=== PATIENT | female | born 1985 | race Hispanic/Latino ===

== ENCOUNTER 2017-07-25 20:48 | Observation (INO) | payer MEDICAID, OTHER ==
[~2017-07-25] VITALS: Ht 165.1 cm; Wt 72.1 kg
[2017-07-25 21:18] LABS: APPEARANCE,URINE Clear (CLEAR); BILIRUBIN,URINE Negative (NEGATIVE); COLOR,URINE Yellow (YELLOW); GLUCOSE, URINE (UA) Negative (NEGATIVE); KETONES,URINE Negative (NEGATIVE); LEUKOCYTE ESTERASE ,URINE Large (NEGATIVE); NITRATE,URINE Negative (NEGATIVE); OCCULT BLOOD,URINE Negative (NEGATIVE); PH,URINE 6.5 (5.0-8.0); PROTEIN,URINE Negative (NEGATIVE); UROBILINOGEN,URINE 0.2 mg/dL (0.2-1.0)
[2017-07-25 21:27] LABS: BACTERIA,URINE Few /HPF (None Seen); RBC,URINE 0-1 /HPF (0-1); SQUAMOUS EPITHELIAL CELL,UR Few /HPF (0-2)
== END 2017-07-25 21:51 | disposition home or self-care (01) ==
LOC: EDH 20:48 → LDH 20:49
PROVIDERS: ADMIT Obstetrics & Gynecology; ATTEND Obstetrics & Gynecology
DX: O26.893 Other specified pregnancy related conditions, third trimester (principal); R10.9 Unspecified abdominal pain; Z3A.39 39 weeks gestation of pregnancy
CPT/HCPCS: 81001; 99285; G0378

== ENCOUNTER 2017-07-27 18:49 | Inpatient (IN) | payer MEDICAID, OTHER ==
[~2017-07-27] VITALS: Ht 157.5 cm; Wt 71.2 kg
[2017-07-27] MEDS ORDERED: OXYTOCIN 10 USP UNITS/ML 20 UNIT in LACTATED RINGERS 1000ML 1,000 ML IV SCH (19:15)
[2017-07-27 19:49] LABS: APPEARANCE,URINE Cloudy (CLEAR); BILIRUBIN,URINE Negative (NEGATIVE); COLOR,URINE Yellow (YELLOW); GLUCOSE, URINE (UA) Negative (NEGATIVE); KETONES,URINE Negative (NEGATIVE); LEUKOCYTE ESTERASE ,URINE Large (NEGATIVE); NITRATE,URINE Negative (NEGATIVE); OCCULT BLOOD,URINE Negative (NEGATIVE); PH,URINE 6.5 (5.0-8.0); PROTEIN,URINE Negative (NEGATIVE); UROBILINOGEN,URINE 0.2 mg/dL (0.2-1.0)
[2017-07-27 20:14] LABS: SQUAMOUS EPITHELIAL CELL,UR 30-50 /HPF (0-2)
[2017-07-27 20:15] LABS: BACTERIA,URINE Few /HPF (None Seen); RBC,URINE None Seen /HPF (0-1)
[2017-07-27] MEDS: LACTATED RINGERS 1000ML 1,000 ML IV PRN ×2 (20:15→22:59)
[2017-07-27 20:40] LABS: HEMATOCRIT 27.9 % (36-48); MEAN CORPUSCULAR HEMOGLOBIN 23.9 pg (27.0-33.0); MEAN CORPUSCULAR HGB CONC 33.7 g/dL (32.0-36.0); MEAN CORPUSCULAR VOLUME 70.9 fL (79-99); NUCLEATED RED BLOOD CELLS 0.1 % (0.0-0.19); PLATELET COUNT (AUTO) 182 K/uL (130-400); RED BLOOD CELL COUNT(AUTO) 3.94 MIL/uL (4.00-5.50); RED CELL DISTRIBUTION WIDTH 17.3 % (11.0-15.5); WHITE BLOOD COUNT (AUTO) 12.4 K/uL (4.8-10.8)
[2017-07-27] MEDS ORDERED: MEPERIDINE-PF 50 MG/ML SYG IVP ONE (22:45)
[2017-07-27] MEDS ORDERED: PROMETHAZINE HCL 25 MG/ML 1ML AMPULE IM SCH (22:45)
[2017-07-28] VITALS (9 sets, daily range): BP systolic 95–114; BP diastolic 50–75
[2017-07-28] MEDS ORDERED: OXYTOCIN 10 USP UNITS/ML ONE ×3 (07:27→12:13)
[2017-07-28] MEDS ORDERED: LACTATED RINGERS 500 ML 500 ML IV PRN (08:30)
[2017-07-28] MEDS ORDERED: NALOXONE HCL 0.4 MG/1 ML ML IV PRN (08:30)
[2017-07-28] MEDS ORDERED: EPHEDRINE SULFATE 50 MG/ML AMPULE IVP PRN (08:30)
[2017-07-28] MEDS ORDERED: WITCH HAZEL 1 PAD TP PRN (09:00)
[2017-07-28] MEDS ORDERED: BENZOCAINE/LANOLIN/ALOE VERA 60 ML AEROSOL TP PRN (09:00)
[2017-07-28] MEDS ORDERED: DIPH,PERTUSS(ACELL),TET VAC/PF 0.5 ML VIAL IM PRN (09:00)
[2017-07-28] MEDS ORDERED: LANOLIN 30GM OINTMENT TP PRN (09:00)
[2017-07-28] MEDS ORDERED: MEASLES/MUMPS/RUBELLA VACCINE, LIVE 0.5 ML/VIAL SQ PRN (09:00)
[2017-07-28] MEDS ORDERED: OXYTOCIN-LR 20 UNITS/1000 ML 1,000 ML IV SCH (09:00)
[2017-07-28] MEDS: DOCUSATE SODIUM 100 MG CAP PO SCH ×2 (10:19→21:12)
[2017-07-28] MEDS: IBUPROFEN 600 MG TABLET PO PRN (10:20)
[2017-07-28] MEDS: ACETAMINOPHEN 325 MG TAB PO PRN (17:14)
[2017-07-28] MEDS: FLU VACC QS2017-18 36MOS UP/PF 60 MCG/0.5 ML ML IM SCH (17:15)
[2017-07-29 00:09] VITALS: BP 97/61
[2017-07-29 04:00] VITALS: BP 100/60
[2017-07-29] MEDS: IBUPROFEN 600 MG TABLET PO PRN (05:03)
[2017-07-29 05:44] LABS: HEMATOCRIT 25.4 % (36-48); MEAN CORPUSCULAR HEMOGLOBIN 23.1 pg (27.0-33.0); MEAN CORPUSCULAR HGB CONC 32.3 g/dL (32.0-36.0); MEAN CORPUSCULAR VOLUME 71.5 fL (79-99); NUCLEATED RED BLOOD CELLS 0.1 % (0.0-0.19); PLATELET COUNT (AUTO) 183 K/uL (130-400); RED BLOOD CELL COUNT(AUTO) 3.55 MIL/uL (4.00-5.50); RED CELL DISTRIBUTION WIDTH 17.7 % (11.0-15.5); WHITE BLOOD COUNT (AUTO) 16.2 K/uL (4.8-10.8)
[2017-07-29 07:55] VITALS: BP 103/70
[2017-07-29] MEDS: ACETAMINOPHEN 325 MG TAB PO PRN (08:55)
[2017-07-29] MEDS: DOCUSATE SODIUM 100 MG CAP PO SCH (09:00)
[2017-07-29 09:17] LABS: HEPATITIS Bs ANTIGEN SCREEN P Negative (Negative)
[2017-07-29 12:20] VITALS: BP 103/57
[2017-07-29] MEDS: FLU VACC QS2017-18 36MOS UP/PF 60 MCG/0.5 ML ML IM SCH (13:30)
[2017-07-29 15:44] VITALS: BP 102/68
== END 2017-07-29 16:20 | disposition home or self-care (01) | DRG 775 ==
LOC: EDH 18:49 → LDH 19:08 → OBSVTOIN 19:11 → WSH 07-28 08:49
PROVIDERS: ADMIT Obstetrics & Gynecology; ATTEND Obstetrics & Gynecology
PROC: 10E0XZZ Delivery of Products of Conception, External Approach (ICD-10-PCS; principal; 2017-07-27)
PROC: 3E0234Z Introduction of Serum, Toxoid and Vaccine into Muscle, Percutaneous Approach (ICD-10-PCS; 2017-07-27)
PROC: 3E0234Z Introduction of Serum, Toxoid and Vaccine into Muscle, Percutaneous Approach (ICD-10-PCS; 2017-07-27)
DX: O80 Encounter for full-term uncomplicated delivery (principal); Z23 Encounter for immunization; Z37.0 Single live birth; Z3A.40 40 weeks gestation of pregnancy
CPT/HCPCS: 36415; 81001; 85027; 86592; 86850; 86900; 86901; 87340; 90715; G0378; J2175; J2550; J2590; J7120; Q2038

== ENCOUNTER 2019-01-29 05:40 | Emergency (ER) | payer MEDICAID, OTHER ==
[2019-01-29] MEDS ORDERED: LIDOCAINE HCL 2% VISCOUS 15 ML UDCUP ONE (06:28)
[2019-01-29] MEDS ORDERED: NEOMYCIN/POLYMYXIN/HC OTIC SUSP 10ML BOTTLE ONE (07:21)
== END 2019-01-29 07:39 | disposition home or self-care (01) ==
LOC: EDH 05:40
DX: O26.892 Other specified pregnancy related conditions, second trimester (principal); T16.2XXA Foreign body in left ear, initial encounter; Z3A.27 27 weeks gestation of pregnancy; X58.XXXA Exposure to other specified factors, initial encounter; Y93.89 Activity, other specified; Y92.89 Other specified places as the place of occurrence of the external cause; Y99.8 Other external cause status
CPT/HCPCS: 69200

== ENCOUNTER 2019-04-10 22:47 | Inpatient (IN) | payer MEDICAID, OTHER ==
[~2019-04-10] VITALS: Ht 157.5 cm; Wt 58.1 kg
[2019-04-10] MEDS ORDERED: LACTATED RINGERS 1000ML 1,000 ML IV PRN (23:43)
[2019-04-10 23:49] LABS: APPEARANCE,URINE Clear (CLEAR); BILIRUBIN,URINE Negative (NEGATIVE); COLOR,URINE Yellow (YELLOW); GLUCOSE, URINE (UA) Negative (NEGATIVE); KETONES,URINE Negative (NEGATIVE); LEUKOCYTE ESTERASE ,URINE Moderate (NEGATIVE); NITRATE,URINE Negative (NEGATIVE); OCCULT BLOOD,URINE Trace (NEGATIVE); PROTEIN,URINE Negative (NEGATIVE); UROBILINOGEN,URINE 0.2 mg/dL (0.2-1.0)
[2019-04-10 23:50] LABS: HEMATOCRIT 28.4 % (36-48); MEAN CORPUSCULAR HEMOGLOBIN 21.4 pg (27.0-33.0); MEAN CORPUSCULAR HGB CONC 31.1 g/dL (32.0-36.0); NUCLEATED RED BLOOD CELLS 0.3 % (0.0-0.19); PLATELET COUNT (AUTO) 151 K/uL (130-400); RED BLOOD CELL COUNT(AUTO) 4.12 MIL/uL (4.00-5.50); RED CELL DISTRIBUTION WIDTH 18.2 % (11.0-15.5); WHITE BLOOD COUNT (AUTO) 14.3 K/uL (4.8-10.8)
[2019-04-10 23:57] LABS: AMPHET/METH SCREEN,URINE NEGATIVE (NEGATIVE); BARBITURATE SCREEN, URINE NEGATIVE (NEGATIVE); BENZODIAZEPINES SCREEN,URINE NEGATIVE (NEGATIVE); CANNABINOID SCREEN,URINE NEGATIVE (NEGATIVE); COCAINE SCREEN,URINE NEGATIVE (NEGATIVE); OPIATE SCREEN,URINE NEGATIVE (NEGATIVE); PHENCYCLIDINE SCREEN,URINE NEGATIVE (NEGATIVE)
[2019-04-11] VITALS (8 sets, daily range): BP systolic 96–126; BP diastolic 50–73
[2019-04-11] MEDS ORDERED: LIDOCAINE HCL 1% 20 ML VIAL INJ PRN
[2019-04-11] MEDS ORDERED: PROMETHAZINE HCL 25 MG/ML 1ML AMPULE IM SCH
[2019-04-11 00:07] LABS: BACTERIA,URINE Few /HPF (None Seen); RBC,URINE 0-1 /HPF (0-1); SQUAMOUS EPITHELIAL CELL,UR Moderate /HPF (0-2)
[2019-04-11] MEDS ORDERED: MEPERIDINE-PF 50 MG/ML SYG ONE (00:07)
[2019-04-11] MEDS: OXYTOCIN-LR 20 UNITS/1000 ML 1,000 ML IV SCH ×2 (00:25→02:49)
[2019-04-11] MEDS ORDERED: LIDOCAINE HCL 1% 20 ML VIAL ONE (00:26)
[2019-04-11] MEDS ORDERED: LACTATED RINGERS 1000ML 1,000 ML IV ONE (00:59)
[2019-04-11] MEDS ORDERED: AMPICILLIN 2GM+NS 100ML 100 ML IV ONE (01:00)
[2019-04-11] MEDS ORDERED: OXYTOCIN-LR 20 UNITS/1000 ML 2,000 ML IV ONE (01:00)
[2019-04-11] MEDS ORDERED: MEASLES/MUMPS/RUBELLA VACCINE, LIVE 0.5 ML/VIAL SQ PRN (02:15)
[2019-04-11] MEDS ORDERED: DIPH,PERTUSS(ACELL),TET VAC/PF 0.5 ML VIAL IM PRN (02:15)
[2019-04-11] MEDS ORDERED: BENZOCAINE/LANOLIN/ALOE VERA 60 ML AEROSOL TP PRN (02:15)
[2019-04-11] MEDS ORDERED: LANOLIN 30GM OINTMENT TP PRN (02:15)
[2019-04-11] MEDS ORDERED: ACETAMINOPHEN-CODEINE 300/30MG TAB PO PRN (02:15)
[2019-04-11] MEDS ORDERED: ACETAMINOPHEN 325 MG TAB PO PRN (02:15)
[2019-04-11] MEDS ORDERED: WITCH HAZEL 1 PAD TP PRN (02:15)
[2019-04-11] MEDS: IBUPROFEN 600 MG TABLET PO PRN ×3 (02:45→17:25)
--- NOTE | 2019-04-11 03:00 | NUR ---
Patient received from L&D: Patient came in via wheelchair accompanied by Ora Covarrubias RN, She has an IV of LR with 20 units Pitocin infusing well. Plan of care discussed with patient verbalizes understanding.
[2019-04-11] MEDS ORDERED: FLU VACC QS2019-20 36MOS UP/PF 60 MCG/0.5 ML ML IM ONE ×2 (08:00→17:07)
[2019-04-11] MEDS: DOCUSATE SODIUM 100 MG CAP PO SCH ×2 (09:45→21:09)
[2019-04-11 10:40] LABS: RAPID PLASMA REAGIN NONREACTIVE (NONREACTIVE)
--- NOTE | 2019-04-11 12:10 | NUR ---
NO CARE, HOMELESS, OPEN CPS CASE DOLORES met with pt and her common law Didier Kaufman [phone]. Pt has 8 children, 5 from previous relationships and 3 with current . Children ages are 15,10,8,6,4,3,2,NB - MANSI KAUFMAN. 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 They have been at [facility] for 3 weeks and were told they could stay longer if needed. Pt is unemployed, states that her CHIPS just started in Mar. she has food stamps $866, [facility], and her 4yro daughter is Autistic and receives [facility] $770. states he is self employed and works general office worker or agricultural general laborer when able. states they left home without any of their belongings. They have no transportation. states they he has family in [place] he can call for help if needed. states they have clothes for NB, and money to buy diapers. They do not have car seat, but know of someone they can borrow car seat from [place] [facility] plans to [facility] [place]. Pt denies hx of abuse, mental health, post depression, legal, substance abuse or CPS issues. DOLORES CALLED LOCAL CPS OFFICE; CASEWKER IS JA POLLARD [phone], [place] [phone]. DOLORES LEFT MESSAGE. WAITING FOR RESPONSE
--- NOTE | 2019-04-11 13:29 | NUR ---
CPS f/u Sw called Es Veliz, CPS casewker [phone]. Per CPS, this homelessness is a pattern for couple. Couple lives off of daughter's SSD, and husbands occasional work. Per CPS, pt had not followed thru with recertification of benefits and lost Medicaid and food stamps for sometime. Benefits were recently restarted after CPS became involved. Es reports that has an aunt that helps when she can, but most of their family is in [place]. Es will follow up with couple regarding dcp, car seat and transportation. If needed, CPS to assist with this. Sw to contact CPS when dc time known. Nurse Tierney lepe
[2019-04-12] VITALS (7 sets, daily range): BP systolic 99–122; BP diastolic 56–69
[2019-04-12 06:48] LABS: HEMATOCRIT 24.5 % (36-48); MEAN CORPUSCULAR HEMOGLOBIN 21.6 pg (27.0-33.0); MEAN CORPUSCULAR HGB CONC 30.8 g/dL (32.0-36.0); MEAN CORPUSCULAR VOLUME 70.1 fL (79-99); NUCLEATED RED BLOOD CELLS 0.1 % (0.0-0.19); PLATELET COUNT (AUTO) 129 K/uL (130-400); RED BLOOD CELL COUNT(AUTO) 3.49 MIL/uL (4.00-5.50); RED CELL DISTRIBUTION WIDTH 18.3 % (11.0-15.5); WHITE BLOOD COUNT (AUTO) 13.6 K/uL (4.8-10.8)
[2019-04-12 08:12] LABS: HEPATITIS Bs ANTIGEN SCREEN P Negative (Negative)
[2019-04-12] MEDS: DOCUSATE SODIUM 100 MG CAP PO SCH ×2 (09:11→20:45)
[2019-04-12] MEDS: IBUPROFEN 600 MG TABLET PO PRN ×2 (09:12→16:42)
--- NOTE | 2019-04-12 09:24 | NUR ---
CPS f/u Sw contacted by nursery nurse Alicia, baby to dc tomorrow. Sw left message.Waiting for response.
[2019-04-13 03:50] VITALS: BP 102/52
[2019-04-13 07:32] VITALS: BP 98/63
[2019-04-13] MEDS: DOCUSATE SODIUM 100 MG CAP PO SCH (09:03)
[2019-04-13] MEDS: IBUPROFEN 600 MG TABLET PO PRN (09:04)
--- NOTE | 2019-04-13 11:04 | NUR ---
INSTRUCTION READ AND EXPLAINED TO PATIENT. PRESCRIPTION FOR MOTRIN 600MG HANDED TO PATIENT. PT VOICED UNDERSTANDING ON DISCHARGE INSTRUCTIONS.
--- NOTE | 2019-04-13 11:12 | NUR ---
DCP: Sw contacted by nurse Koch. Pt ready for dc, they have arranged for transport with friend who has car seat they can use. Sw left message for Es CPS case wker of dcp. Es to f/u at [facility] with pt and family
[2019-04-13 11:37] VITALS: BP 112/65
--- NOTE | 2019-04-13 14:45 | NUR ---
PATIENT LEFT UNIT VIA WHEELCHAIR WITH BABY IN ARMS. PERSONAL VEHICLE USED FOR TRANSPORTATION BABY SECURE IN CARSEAT. NO COMPLAINTS OR CONCERNS ADDRESSED PATIENT ON DISCHARGE.
== END 2019-04-13 14:45 | disposition home or self-care (01) | DRG 807 ==
LOC: EDH 22:47 → LDH 23:13 → OBSVTOIN 23:13 → WSH 04-11 02:55
PROVIDERS: ADMIT Obstetrics & Gynecology; ATTEND Obstetrics & Gynecology
PROC: 10E0XZZ Delivery of Products of Conception, External Approach (ICD-10-PCS; principal; 2019-04-11)
PROC: 0HQ9XZZ Repair Perineum Skin, External Approach (ICD-10-PCS; 2019-04-11)
PROC: 3E0234Z Introduction of Serum, Toxoid and Vaccine into Muscle, Percutaneous Approach (ICD-10-PCS; 2019-04-11)
PROC: 3E0134Z Introduction of Serum, Toxoid and Vaccine into Subcutaneous Tissue, Percutaneous Approach (ICD-10-PCS; 2019-04-11)
PROC: 3E02340 Introduction of Influenza Vaccine into Muscle, Percutaneous Approach (ICD-10-PCS; 2019-04-11)
DX: O70.0 First degree perineal laceration during delivery (principal); Z37.0 Single live birth; Z23 Encounter for immunization; Z3A.37 37 weeks gestation of pregnancy
CPT/HCPCS: 36415; 80305; 81001; 85027; 86592; 86701; 86850; 86900; 86901; 87340; 87390; 90707; 90715; G0008; G0378; J0290; J2175; J2590; J7120; Q2035